=== PATIENT | male | born 1950 | race Two or more races ===

== ENCOUNTER → 2016-08-28 | Outpatient (CLI) | payer OTHER | LOC: CIMAGING 11:38 | PROVIDERS: ATTEND Family Medicine | DX: J40 Bronchitis, not specified as acute or chronic (principal) | CPT/HCPCS: 71020-PO ==

== ENCOUNTER → 2016-10-05 | Outpatient (CLI) | payer OTHER | LOC: CIMAGING 13:10 | PROVIDERS: ATTEND Specialist | DX: J47.0 Bronchiectasis with acute lower respiratory infection (principal); I25.10 Atherosclerotic heart disease of native coronary artery without angina pectoris; R22.2 Localized swelling, mass and lump, trunk | CPT/HCPCS: 71250-PO ==

== ENCOUNTER → 2017-12-15 | Outpatient (CLI) | payer OTHER | LOC: FCPNEURO 21:30 | PROVIDERS: ATTEND Psychiatry & Neurology Sleep Medicine | DX: G47.33 Obstructive sleep apnea (adult) (pediatric) (principal) ==